=== PATIENT | male | born 1995 | race Two or more races ===

== ENCOUNTER 2016-07-13 13:00 | Emergency (ER) | payer OTHER ==
--- NOTE | 2016-07-13 13:12 | EDPHY ---
H & P Stated Complaint: SOB/Flu like symptoms Time Seen by Provider: 07/13/16 13:11 - Personal History Current Tetanus/Diphtheria Vaccine: Yes Current Tetanus Diphtheria and Acellular Pertussis (TDAP): Yes - Medical/Surgical History Hx Asthma: Yes Hx Chronic Respiratory Disease: Yes Hx Diabetes: No Hx Cardiac Disease: No Hx Renal Disease: No Hx Cirrhosis: No Hx Alcoholism: No Hx HIV/AIDS: No Hx Splenectomy or Spleen Trauma: No Other PMH: Respiratory Disease - Social History Smoking Status: Never smoked Constitutional: Initial Vital Signs Temperature (C) 36.5 C 07/13/16 13:03 Heart Rate 106 H 07/13/16 13:03 Respiratory Rate 14 07/13/16 13:03 Blood Pressure 124/82 H 07/13/16 13:03 O2 Sat (%) 91 L 07/13/16 13:03 O2 Delivery Mode Room Air Medical Decision Making ED Course/Re-evaluation: CHIEF COMPLAINT: HISTORY OF PRESENT ILLNESS: must have 4 elements: Location, Quality, Severity , Duration, Timing, Context, Modifying Factors, Associated Signs and Symptoms REVIEW OF SYSTEMS: A 10 point review of systems was performed and is negative with the exception of the elements mentioned in the history of present illness. PHYSICAL EXAM: HR, BP, O2 Sat, RR. Temp noted General Appearance: Alert, well hydrated, appropriate, and non-toxic appearing. Head: Atraumatic without scalp tenderness or obvious injury Eyes: Pupils equal, round, reactive to light and accommodation, EOMI, no trauma , no injection. Ears: Clear bilaterally, no perforation, normal landmarks Nose: Atraumatic, no rhinorrhea, clear. Throat: There is no erythema or exudates, no lesions, normal tonsils, mucus membranes moist. Neck: Supple, 2+ carotid upstroke, nontender, no lymphadenopathy. Respiratory: No retractions, no distress, no wheezes, and no accessory muscle use. Lungs are clear to auscultation bilaterally. Cardiovascular: Regular rate and rhythm, no murmurs, rubs, or gallops. Bilateral carotid, radial, dorsalis pedis, and posterior tibial pulses intact. Good capillary refill all extremities. Gastrointestinal: Abdomen is soft, nontender, non-distended, no masses, no rebound, no guarding, no peritoneal signs. Musculoskeletal: Normal active ROM of all extremities, atraumatic. Neurological: Alert, appropriate, and interactive. The patient has normal DTRs and non-focal cranial nerves, motor, sensory, and cerebellar exam. Skin: No rashes, good turgor, no nodules on palpation. Past medical history: Past surgical history: Family history: Social history: DIAGNOSTICS/PROCEDURES/CRITICAL CARE TIME: DIFFERENTIAL DIAGNOSIS: MEDICAL DECISION MAKING: Departure - Departure Referrals: NONE *PRIMARY CARE P,. [Primary Care Provider] - As per Instructions
[2016-07-13] MEDS ORDERED: IPRATROPIUM/ALBUTEROL 3 ML DEYVIAL IH ONE (13:15)
--- NOTE | 2016-07-13 13:17 | EDPHY ---
H & P Time Seen by Provider: 07/13/16 13:11 HPI/ROS: CHIEF COMPLAINT: URI symptoms x4 days HISTORY OF PRESENT ILLNESS: 20-year-old male with history of pulmonary fibrosis , no history of supplemental oxygen use, complaining of 4 days of nonproductive cough, nasal congestion, sore throat, dyspnea. Denies: Fever, chills, chest pain, back pain, abdominal pain, syncope or near syncope. Patient is followed by Dr. Belen Rosenberg at [facility] for his pulmonary fibrosis history. He is on daily prednisone 50 mg. He has home oxygen as well. REVIEW OF SYSTEMS: A ten point review of systems was performed and is negative with the exception of the items mentioned in the HPI PAST MEDICAL & SURGICAL HISTORY: Pulmonary fibrosis. Home oxygen. Positive influenza vaccination this season. SOCIAL HISTORY: nonsmoker PHYSICAL EXAM (Prior to examination, patient consented to physical exam, hands were washed and my usual and customary physical exam procedures followed) 1) GENERAL: Well-developed, well-nourished, alert and oriented. Appears to be in no acute distress. Speaking full sentences with no signs of respiratory distress 2) HEAD: Normocephalic, atraumatic 3) HEENT: Pupils equal, round, reactive to light bilaterally. Sclera anicteric. Nasopharynx: Congestion, oropharynx, clear, no lesions. no tonsillar enlargement or tonsillar exudate Ears bilaterally with normal tympanic membranes. 4) NECK: Full range of motion, no meningeal signs. 5) LUNGS: Clear auscultation bilaterally, no wheezes, no rhonchi, no retractions. 6) HEART: Regular rate and rhythm, no murmur, no heave, no gallop. 7) ABDOMEN: No guarding, no rebound, no focal tenderness, negative McBurney's, negative Schaefer's, negative Rovsing's, negative peritoneal sign, 8) MUSCULOSKELETAL: Moving all extremities, no focal areas of tenderness, no obvious trauma. No peripheral edema or discoloration. 9) BACK: No CVA tenderness, no midline vertebral tenderness, no fluctuance, no step-off, no obvious trauma, no visual or palpable abnormality. 10) SKIN: No rash, no petechiae. 11) Psychiatric: Patient is oriented X 3, there is no agitation. DIFFERENTIAL DIAGNOSIS: in no particular include but limited to viral syndrome , bronchitis, pneumonia, influenza, pulmonary embolus Smoking Status: Never smoked Constitutional: Initial Vital Signs Temperature (C) 36.5 C 07/13/16 13:03 Heart Rate 106 H 07/13/16 13:03 Respiratory Rate 14 07/13/16 13:03 Blood Pressure 124/82 H 07/13/16 13:03 O2 Sat (%) 91 L 07/13/16 13:03 O2 Delivery Mode Room Air O2 (L/minute) 2 Allergies/Adverse Reactions: No Known Allergies Allergy (Unverified 07/13/16 15:12) Home Medications: Medication Instructions Recorded AZITHROMYCIN [Z-PACK] 500 mg PO DAILY #1 packet 07/13/16 Albuterol [Proventil Inhaler HFA 1 - 2 puffs IH Q4PRN PRN #1 mdi 07/13/16 (*)] MDM/Departure - MDM Medications Given: Discontinued Medications Albuterol/Ipratropium (Duoneb) 3 ml IH EDNOW ONE Stop: 07/13/16 13:16 Last Admin: 07/13/16 13:35 Dose: 3 ml ED Course/Re-evaluation: Patient has been re-evaluated with serial examinations. He is given DuoNeb treatment and notes significant decrease in symptoms, increasing comfort level. Lungs remain clear bilaterally. Discussed his chest x-ray showing no definitive infiltrate. He does have multiple findings consistent with pulmonary fibrosis. He is followed by community health education coordinator at [facility] , Dr. Belen Rosenberg. I had Dr Dahlia lopez as a courtesy and as of 3:37 p.m. we have not heard back from her. He feels comfortable being discharged. He would like to be discharged. - Depart Disposition: Home, Routine, Self-Care Clinical Impression: Upper respiratory disease Condition: Good Instructions: Upper Respiratory Infection (ED) Additional Instructions: Return to the emergency department if you develop shortness of breath, chest pain, dizziness, or any other symptoms that concern you Stand Alone Forms: School Excuse Prescriptions: Albuterol [Proventil Inhaler HFA (*)] 1 - 2 puffs IH Q4PRN PRN #1 mdi PRN Reason: Cough, Moderate AZITHROMYCIN [Z-PACK] 500 mg PO DAILY #1 packet Referrals: belen rosenberg [Other] - 07/16/16
[2016-07-13 16:01] VITALS: BP 118/73; PULSE 92; RESP 18; TEMP 98.4; O2SAT 92
== END 2016-07-13 16:01 | disposition home or self-care (01) ==
DX: J06.9 Acute upper respiratory infection, unspecified (principal)